=== PATIENT | male | born 1980 | race Caucasian/White ===

== ENCOUNTER 2022-04-12 12:34 | Emergency (ER) | payer SELFPAY ==
[~2022-04-12] VITALS: Ht 175.3 cm; Wt 90.9 kg
[2022-04-12 13:01] VITALS: BP 135/80
== END 2022-04-12 13:18 ==
LOC: ER 12:34
DX: F10.129 Alcohol abuse with intoxication, unspecified; I10 Essential (primary) hypertension
CPT/HCPCS: 99283